=== PATIENT | male | born 1975 | race Caucasian/White ===

== ENCOUNTER 2019-12-30 10:38 | Day surgery (SDC) | payer OTHER ==
[2019-12-24 11:59] VITALS: BMI 35.2
[2019-12-30] MEDS ORDERED: fentaNYL CITRATE 250 MCG/5 ML VIAL ONE (13:41)
[2019-12-30] MEDS ORDERED: SUCCINYLCHOLINE CHLORIDE 200 MG/10 ML SYRINGE ONE (13:41)
[2019-12-30] MEDS ORDERED: PROPOFOL 20 ML ONE ×2 (13:41)
[2019-12-30] MEDS ORDERED: ROCURONIUM BROMIDE 50 MG/5 ML SYRINGE ONE (13:41)
[2019-12-30] MEDS ORDERED: MIDAZOLAM HCL 2 MG/2 ML SINGLE DOSE VIAL ONE ×2 (13:42)
[2019-12-30] MEDS ORDERED: NEOSTIGMINE METHYLSULFATE 0.5 MG/ML - 10 ML MDV ONE (14:48)
[2019-12-30] MEDS ORDERED: BUPIVACAINE HCL/PF 0.5% (5MG/ML) 10 ML VIAL IJ ONE (14:49)
[2019-12-30] MEDS ORDERED: LACTATED RINGERS SOLUTION 1,000 ML IV SCH (15:15)
[2019-12-30] MEDS ORDERED: oxyCODONE HCL 5 MG TABLET ONE (16:03)
[2019-12-30 16:46] VITALS: BP 159/94; PULSE 90; TEMP 98
[2019-12-30] MEDS ORDERED: oxyCODONE HCL 5 MG TABLET PO ONE (17:39)
--- NOTE | 2020-01-01 17:20 | PATH ---
Surgical Pathology Report Patient Name: AMI SULLIVAN Med. Rec. #: [id number] /Age/Gender: 1975 (Age: 44) / M Account: [id number] Location: [facility] Taken: 12/30/2019 Received: 12/30/2019 Reported: 01/01/2020 Physicians: Binu Serrano M.D. Specimen(s) Received TRICEP TENDON DEBRIDEMENT Clinical History Left elbow tricep tear Final Diagnosis TRICEP TENDON, DEBRIDEMENT: BENIGN DENSE FIBROCONNECTIVE TISSUE. Electronically Signed Amada Zimmerman M.D. Gross Description Received in formalin, labeled "tricep tendon debridement" are 2 white-morrison irregular portions of soft tissue measuring 2.5 x 0.7 x 0.5 cm and 1 x 0.3 x 0.3 cm cm. The specimens are submitted in toto in one cassette. MLSZ/12/31/2019 sanjulian/12/31/2019
--- NOTE | 2020-01-01 18:18 | OP ---
DATE OF OPERATION: 12/30/2019 PREOPERATIVE DIAGNOSIS: Left distal triceps partial tear. POSTOPERATIVE DIAGNOSIS: Left distal triceps partial tear. OPERATIVE PROCEDURE: Left distal triceps partial tear debridement and repair at insertion. SURGEON: Binu Leyva MD. KNOCK OUT HAND: No billing assistant. ANESTHESIA: General anesthesia. COMPLICATIONS: None. ESTIMATED BLOOD LOSS: Minimal. INDICATION FOR PROCEDURE: The patient is a 24-year-old male with the above findings, indicated for operative treatment. Risks, benefits, and alternatives were discussed with the patient at length. Proper informed consent was obtained. DESCRIPTION OF PROCEDURE: After proper identification of the patient and correct operative site, patient was brought to the operating room and placed supine on the operating room table, all bony prominences well padded. Prior to bringing the patient to the OR, he was examined because he had left shoulder pain, and he was found to have very limited range of motion of his shoulder, and he stated his surgeon was aware that he had further testing. The shoulder was carefully protected throughout the procedure. Left upper extremity was prepped and draped in the usual sterile fashion. Well padded tourniquet was placed with a sterile prep. Esmarch bandage to exsanguinate the left upper extremity. Tourniquet inflated to 250 mmHg. In the supine position with the arm gently draped across the chest, a longitudinal incision was made over the triceps tendon. Incision was taken sharply through the skin with sharp and blunt dissection to subcutaneous tissues. The longitudinal fibers of the triceps were divided off the olecranon process and found at its medial insertion along with partial tearing. This was debrided thoroughly, and a [id number] repair using a 2-0 Fiberwire suture was performed, which gave a secure and stable repair. The wound was irrigated and repaired in layers using 2-0 Vicryl and skin daniela. Sterile dressings were applied. Patient was reversed from anesthesia, brought to recovery in stable condition. He tolerated the procedure well. BINU LEYVA M.D. [id number]
== END 2019-12-30 16:40 | disposition home or self-care (01) ==
LOC: FASU 10:38
PROVIDERS: ATTEND Orthopaedic Surgery Hand Surgery
PROC: 0LM40ZZ Reattachment of Left Upper Arm Tendon, Open Approach (ICD-10-PCS; principal; 2019-12-30 14:14)
DX: S46.392A Other injury of muscle, fascia and tendon of triceps, left arm, initial encounter (principal); X58.XXXA Exposure to other specified factors, initial encounter; Y93.9 Activity, unspecified; Y92.9 Unspecified place or not applicable
CPT/HCPCS: 88304-TC; 94760